=== PATIENT | female | born 1960 | race African-American/Black ===

== ENCOUNTER 2020-10-27 00:55 | Emergency (ER) | payer BC ==
[2020-10-27 01:03] VITALS: BMI 30.4
[2020-10-27] MEDS ORDERED: ACETAMINOPHEN 1000 MG/100 ML VIAL (NON FORMULARY) IVPB ONE (01:51)
[2020-10-27] MEDS ORDERED: ACETAMINOPHEN INJECTION 100 ML IVPB ONE (01:55)
[2020-10-27] MEDS ORDERED: KETOROLAC TROMETHAMINE 30 MG/1 ML VIAL IVPUSH ONE (07:37)
[2020-10-27] MEDS ORDERED: KETOROLAC TROMETHAMINE 15 MG/ML VIAL ONE (07:46)
[2020-10-27 12:51] VITALS: BP 142/84; PULSE 86; TEMP 98.5
== END 2020-10-27 13:03 | disposition home or self-care (01) ==
LOC: JER 00:55
PROC: 2W3QX1Z Immobilization of Right Lower Leg using Splint (ICD-10-PCS; principal; 2020-10-27)
PROC: 3E0333Z Introduction of Anti-inflammatory into Peripheral Vein, Percutaneous Approach (ICD-10-PCS; 2020-10-27)
PROC: 3E0333Z Introduction of Anti-inflammatory into Peripheral Vein, Percutaneous Approach (ICD-10-PCS; 2020-10-27)
DX: M25.572 Pain in left ankle and joints of left foot (principal)
CPT/HCPCS: 72131-TC; 73562-TC-LT-FY; 73590-TC-LT-FY; 73610-TC-LT-FY; 73630-TC-LT; 99285-25; J0131